=== PATIENT | female | born 1965 | race American Indian/Alaskan Native ===

== ENCOUNTER 2016-10-24 21:14 | Emergency (ER) | payer MEDICARE ==
[2016-10-25] LABS: Mean Corpuscular HGB Conc 33 % (30-34); Mean Corpuscular Hemoglobin 31 pg (28-32); Mean Corpuscular Volume 96 fl (79-97); Platelet Count 245 K/mm3 (140-440); Red Cell Distribution Width 14.7 % (13.2-15.2); White Blood Count 6.6 K/mm3 (4.5-11.0)
[2016-10-25] MEDS ORDERED: DILAUDID IM ONE (00:19)
--- NOTE | 2016-10-25 00:29 | Emergency Department Report ---
HPI - General Chief Complaint: Back Pain/Injury Time Seen by Provider: 10/24/16 23:54 - HPI HPI: This is a 51-year-old Afro-[place] female presents to the emergency department with complaint of acute on chronic back pain, bilateral knee pain, and chest/ breast pain. She has a history of arthritis in both the back and knees and she has a history of double mastectomy. She goes to a pain specialist, Dr. Mohmaud, where she receives oral oxycodone and Dilaudid. She also says that she gets multiple injections from this physician but it does not help her pain and in fact sometimes makes it worse. She says that she has come here for some referrals for other types of physicians so she can get some relief. She denies any numbness or paresthesias, problems with bowel or bladder or any neurological deficits. She also has a past medical history of hypertension. She denies any other illicit drug use or abuse. No recent travel or sick contacts at home. ED Past Medical Hx - Past Medical History Previous Medical History?: Yes Hx Hypertension: Yes (FOR 10 YRS) Hx Congestive Heart Failure: No Hx Diabetes: No Hx Asthma: No Hx COPD: No - Surgical History Hx Breast Surgery: Yes (RIGHT BREAST CORE BX 11-22-13, RIGHT AXILLARY NODE DISSECTION IN 2010) Additional Surgical History: Double Mastectomy 2013 - Social History Smoking Status: Unknown if ever smoked - Medications Home Medications: Home Medications Medication Instructions Recorded Confirmed Last Taken Type amLODIPine [Norvasc] 10 mg PO DAILY 03/20/14 10/25/16 10/24/16 History oxyCODONE ER (NF) [OxyCONTIN ER 40 mg PO TID 03/20/14 10/25/16 10/24/16 History TAB] Hydrochlorothiazide [HCTZ] 12.5 mg PO QDAY #30 capsule 10/25/16 Unknown Rx Losartan [Cozaar] 50 mg PO QDAY #30 tablet 10/25/16 Unknown Rx Metoprolol [Lopressor TAB] 100 mg PO QDAY #30 tablet 10/25/16 Unknown Rx amLODIPine [Norvasc] 10 mg PO DAILY 10/25/16 10/25/16 10/24/16 History oxyCODONE /ACETAMINOPHEN [Percocet 1 tab PO Q6HR PRN #8 tablet 10/25/16 Unknown Rx 5/325] ED Review of Systems ROS: Stated complaint: BACK PAIN/LEG PAIN/BREAST PAIN Other details as noted in HPI Comment: All other systems reviewed and negative Constitutional: denies: chills, fever Eyes: denies: eye pain, eye discharge, vision change ENT: denies: ear pain, throat pain Respiratory: denies: cough, shortness of breath, wheezing Cardiovascular: denies: palpitations, edema Gastrointestinal: denies: abdominal pain, nausea, diarrhea Genitourinary: denies: urgency, dysuria, discharge Musculoskeletal: back pain, arthralgia. denies: joint swelling Skin: denies: rash, lesions Neurological: denies: headache, weakness, paresthesias Physical Exam - Physical Exam Vital Signs: Vital Signs 10/24/16 10/24/16 21:50 22:04 Temperature 99.3 F 99.3 F Pulse Rate 99 H 99 H Respiratory 20 Rate Blood Pressure 160/113 Blood Pressure 160/113 [Right] O2 Sat by Pulse 98 98 Oximetry Physical Exam: GENERAL: The patient is well-developed well-nourished. HEENT: Normocephalic. Atraumatic. Extraocular motions are intact. Patient has moist mucous membranes. Pupils equal reactive to light bilaterally. NECK: Supple. Trachea is midline. CHEST/LUNGS: Clear to auscultation. There is no respiratory distress noted. HEART/CARDIOVASCULAR: Regular. There is no tachycardia. There is no gallop rub or murmur. ABDOMEN: Abdomen is soft, nontender. Patient has normal bowel sounds. There is no abdominal distention. Thin habitus. SKIN: Skin is warm and dry. NEURO: The patient is awake, alert, and oriented. The patient is cooperative. The patient has no focal neurologic deficits. The patient has normal speech and gait. Cranial nerves II through XII grossly intact. MUSCULOSKELETAL: There is some mild tenderness to palpation to the bilateral knees but no obvious deformity. Negative posterior and anterior drawer test to the bilateral knees. No laxity with valgus or varus stress of the affected knees. There is no limitation range of motion. There is no evidence of acute injury. Muscle strength 5 out of 5 for upper and lower extremities bilaterally including EHL. BACK: No midline thoracic or lumbar tenderness to palpation or deformity. There is some mild tenderness to palpation to the paraspinal lumbar back. ED Course Vital Signs 10/24/16 10/24/16 21:50 22:04 Temperature 99.3 F 99.3 F Pulse Rate 99 H 99 H Respiratory 20 Rate Blood Pressure 160/113 Blood Pressure 160/113 [Right] O2 Sat by Pulse 98 98 Oximetry ED Medical Decision Making - Lab Data Result diagrams: 10/24/16 23:30 10/24/16 23:30 - Medical Decision Making 51-year-old female presents to the emergency department with the complaint of chronic back and knee pain. She denies any recent trauma. There is no redness , swelling, deformity. Patient seen ambulatory and appears stable. There are no focal, motor or sensory deficits. No numbness or paresthesias, problems with bowel or bladder or any neurological deficits. She does not appear to have any of the emergent back conditions such as cauda equina, epidural abscess , or cord compression syndrome. Patient is out of her pain medication. I discussed with her that I'm not willing to refill the amount or even the strength of the medications that she gets from her pain physician. Since there was no deformity or any trauma did not feel that any further imaging was necessary at this time. She was given 1 dose of pain medication in the emergency department and a few pills to get her to an appointment with her pain physician. She was also given referrals for different orthopedists so that she can look into nonnarcotic and non-injectable therapeutic treatments for her chronic pains. She will return to the ER with any worsening of her symptoms or any acute distress. - Differential Diagnosis arthritis, occult fracture, muscle spasm Critical Care Time: No Critical care attestation.: If time is entered above; I have spent that time in minutes in the direct care of this critically ill patient, excluding procedure time. ED Disposition Clinical Impression: Back pain Qualifiers: Back pain location: low back pain Chronicity: chronic Back pain laterality: bilateral Sciatica presence: without sciatica Qualified Code(s): M54.5 - Low back pain Knee pain, chronic Qualifiers: Laterality: bilateral Qualified Code(s): M25.561 - Pain in right knee Hypertension Qualifiers: Hypertension type: essential hypertension Qualified Code(s): I10 - Essential ( primary) hypertension Disposition: - TO HOME OR SELFCARE Is pt being admited?: No Condition: Stable Instructions: Hypertension (ED), Arthralgia (ED), Chronic Back Pain (ED) Additional Instructions: Please follow-up with Dr. Mohamud regarding your pain management. I have given referrals for Dr. Keenan and Dr. Salgado, 2 different orthopedists that you can attempt to see regarding your knee pains and back pains. It is also recommended that you follow-up with your primary care physician, Dr. Jed Rod, regarding your elevated blood pressure and your chronic pains. Return to the emergency department with any worsening of your symptoms or any acute distress. You've been prescribed a medication that is sedating. Therefore this medication cannot be mixed with alcohol, or taken prior to driving, working, or being responsible for children. Prescriptions: Hydrochlorothiazide [HCTZ] 12.5 mg PO QDAY #30 capsule Losartan [Cozaar] 50 mg PO QDAY #30 tablet Metoprolol [Lopressor TAB] 100 mg PO QDAY #30 tablet oxyCODONE /ACETAMINOPHEN [Percocet 5/325] 1 tab PO Q6HR PRN #8 tablet PRN Reason: Pain Referrals: PRIMARY CAREMD [Primary Care Provider] - 3-5 Days TIAGO KEENAN MD [Staff Physician] - 3-5 Days TYRONE SALGADO MD [Staff Physician] - 3-5 Days JED ROD MD [Staff Physician] - 3-5 Days Time of Disposition: 02:17
[2016-10-25 00:33] LABS: BUN/Creatinine Ratio 12.5; Calcium 9.5 mg/dL (8.4-10.2); Chloride 102.1 mmol/L (98-107); Potassium 3.5 mmol/L (3.6-5.0)
[2016-10-25 00:39] LABS: Urine Drugs of Abuse Note Disclamer
[2016-10-25 00:50] LABS: Bacteria,Urine 1+ /HPF (Negative); Bilirubin,Urine NEG (Negative); Blood,Urine NEG (Negative); Ketones,Urine TR mg/dL (Negative); Leukocyte Esterase,Urine NEG (Negative); Mucus,Urine 3+ /HPF; Nitrite,Urine NEG (Negative)
[2016-10-25 02:28] VITALS: BP 162/102
== END 2016-10-25 02:28 | disposition home or self-care (01) ==
LOC: ED 21:14
DX: M54.5 Low back pain (principal); M25.561 Pain in right knee; I10 Essential (primary) hypertension; M19.90 Unspecified osteoarthritis, unspecified site; G89.29 Other chronic pain
CPT/HCPCS: 36415; 80048; 80307; 81001; 81025; 85027; 96372; 99283; J1170